=== PATIENT | male | born 1985 ===

== ENCOUNTER 2025-01-20 09:49 | Outpatient (AMB) | payer OTHER, SELFPAY ==
--- OUTSIDE RECORDS SUMMARY | 2025-01-20 10:35 | XMS_ITS | Patient Health Record ---
Author Organization [facility] Address [address] [place] [address] [phone] Support Name Relationship Address Phone Lino Page Guarantor Unknown [phone] Allergies No Known Allergies Reason For Referral No Information Social History Sex Assigned At : Social History Observation Description Sex Assigned At Male Plan Of Treatment No Information Insurance Providers Payer Name Payer Address Payer Phone Subscriber Number Group Number Insured Name Patient Relationship to Insured Coverage Start Date Coverage End Date [place] MEDICA[place] ATT CLAIMS [address] [place] [address] [id number] Lino Page Self - patient is the insured
[2025-01-20 10:40] VITALS: BMI 32.5
--- NOTE | 2025-01-20 10:40 | MHC.OFFVIS ---
Vital Signs 01/20/25 10:40 Height 6 ft Weight 240 lb BMI 32.5 Intake Visit Reasons: SEE WHEELER-right hand injury, DOI 09/22/24 Intake Note: right hand dominant male presnets today for his right hand injury DOI 09/22/24. States on this day while in [place], [place] , he slipped on oil, put his hand out to break his hand. States he was seen at urgent care where nothing was done. States when he woke up the next day, he went to [facility] where he was told he has a fracture. He was splinted and advised to keep splint on. Currently states he continues to have pain, he was not able to follow up due to insurance and being out of states. Pain is at base of thumb, MCP's and numbness that comes and goes. Xrays update din office. Allergies No Known Allergies Allergy (Verified 01/20/25 10:47) HPI HPI SEE WHEELER-right hand injury, DOI 09/22/24: Details: Lino is a 39 year old right hand dominant man who presents with complaints of right hand pain, S/P fall, DOI: 09/22/24. He complains of pain throughout his entire hand , worse at the base of his thumb & multiple MCP joints. He says he had swelling to his whole hand after his fall, and was seen at [facility] for this. He says he has weakness & difficulty with gripping & lifting activities He complains of numbness in all the fingers of his right hand. Symptoms intermittent, but daily, worse at night. He says this is primarily in his middle, ring, and small fingers, but occasionally in his thumb & index finger as well. He has a Hx of a 4th & 5th metacarpal ORIF, done in ~2009 in [place], after punching a wall. 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 Review of Systems Const All systems reviewed & are unremarkable except as noted in HPI and below Physical Exam Vital Signs: BMI result Body Mass Index 32.5 Const General: cooperative, healthy appearing and no acute distress Orientation/consciousness: patient oriented x3 HEENT Head: Yes normocephalic and Yes atraumatic Eyes EOM: EOMs intact bilaterally Resp Effort & Inspection: normal respiratory effort and able to speak in complete sentences Cardio Jugular venous distension: no JVD Skin General skin exam: turgor normal Rashes: no rashes Neuro General: patient oriented x3 Extrem Other: Evaluation of Right Upper Extremity: The patient is alert, oriented, and in no acute distress Neuro: Median, Ulnar, Radial nerves motor and sensory intact and sensation is normal to the tips of all digits today in clinic Vascular: Cap refill brisk ROM: He can make a closed fist with no overlap Small amount of ulnar deviation/pronation of the ring finger seen both with fingers extended and brought to a fist. No overlap with finger flexion or extension Skin: No lacerations or abrasions. General: No Ecchymosis. No Erythema or evidence of infection. He localizes his pain today to the radial aspect of his hand & wrist, as well as the 4th & 5th MCP joints Most tender over the basal joint Mildly Tender over the snuffbox No scaphoid tubercle tenderness No metacarpal tenderness Radiographs: 3 views of the right hand were taken and viewed by me today in clinic. They show healed 4th & 5th metacarpal fractures, S/P ORIF, with dorsally located plates & screws. Fractures well-healed with no loosening or breakage of implants. No evidence of a scaphoid fracture Psych Appearance: grossly normal Affect: normal affect Attitude: cooperative Assessment & Plan Assessment & Plan (1) Right hand pain: Code(s): M79.641 - Pain in right hand Category: Medical (2) Right hand weakness: Code(s): R29.898 - Other symptoms and signs involving the musculoskeletal system Category: Medical (3) Numbness and tingling in right hand: Code(s): R20.0 - Anesthesia of skin; R20.2 - Paresthesia of skin Category: Medical Plan Assessment & Plan: 1. Right hand pain, S/P fall DOI: 09/22/24 2. Right hand weakness, S/P fall DOI: 3/24/25 3. Right hand numbness, S/P fall DOI: 09/22/24 In all digits, primarily the middle, ring, and small fingers Symptoms intermittent, but daily, worse with activities 4. Patient status post ORIF of right 4th and 5th metacarpals with plates and screws Date of surgery of proximally 2009 in [place] These appear to have gone on to heal well, and I seen no loosening or breakage of implants I educated him about these conditions I discussed treatment options No operative intervention indicated at this time I discussed activity modifications, he will perform ROM exercises at home. he should avoid any heavy lifting or impact activities for the next few weeks I ordered a NCS to assess for peripheral nerve compression I ordered OT hand therapy to work on strengthening & normalizing function He will follow up in 6 weeks for a NCS review, when completed Orders: Orders XR hand RT min 3V Today M79.641 - Pain in right hand NE nerve conduction velocity Today R20.0 - Anesthesia of skin, R20.2 - Paresthesia of skin OT Evaluation and Treatment Today M79.641 - Pain in right hand, R20.0 - Anesthesia of skin, R20.2 - Paresthesia of skin, R29.898 - Other symptoms and signs involving the musculoskeletal system Scribe Plan - Not visible on output: Scribed for Paradise Handley MD by Saul Navarrete, medical technologist chemistry, on [ ] at [ ], EST. Coding Level of Care Code New Pt Level 4 (40804) Diagnoses Right hand pain M79.641 Right hand weakness R29.898 Numbness and tingling in right hand R20.0; R20.2
== END 2025-01-20 11:30 | disposition home or self-care (01) ==
LOC: HO.HOS 09:49
PROVIDERS: Visit Provider Orthopaedic Surgery
DX: M79.641 Pain in right hand (principal); R29.898 Other symptoms and signs involving the musculoskeletal system; R20.0 Anesthesia of skin; R20.2 Paresthesia of skin
CPT/HCPCS: 99204

== ENCOUNTER → 2025-01-20 09:51 | Outpatient (BNV) | payer OTHER, SELFPAY | PROVIDERS: Visit Provider Radiology Diagnostic Radiology | DX: M79.641 Pain in right hand (principal) | CPT/HCPCS: 73130 ==

== ENCOUNTER 2025-01-20 10:05 | Outpatient (REF) | payer OTHER, SELFPAY ==
--- NOTE | ~2025-01-20 | XR_ITS ---
EXAMINATION: XR HAND, RIGHT CLINICAL INFORMATION: M79.641 - Pain in right hand COMPARISON: None available. TECHNIQUE: PA, lateral, and oblique views of the right hand. FINDINGS: There are intact metallic plates in the fourth and fifth metacarpals. No acute cortical disruption or malalignment. No gross loosening. No subcutaneous emphysema. No lytic or blastic lesions. XR/XR hand RT min 3V IMPRESSION: Status post open reduction internal fixation the fourth and fifth metacarpals. Electronically signed by: Darío Nunez MD 01/20/2025 10:11 AM EDT
--- OUTSIDE RECORDS SUMMARY | 2025-01-21 10:56 | XMS_ITS | Patient Health Record ---
Author Organization [facility] Address [address] [place] [address] [phone] Support Name Relationship Address Phone Lino Page Guarantor Unknown [phone] Allergies No Known Allergies Reason For Referral No Information Social History Sex Assigned At : Social History Observation Description Sex Assigned At Male Plan Of Treatment No Information Insurance Providers Payer Name Payer Address Payer Phone Subscriber Number Group Number Insured Name Patient Relationship to Insured Coverage Start Date Coverage End Date [place] ATT CLAIMS [address] [place] [address] [id number] Lino Page Self - patient is the insured
== END 2025-01-20 10:06 | disposition home or self-care (01) ==
LOC: HO.HOSX 10:05
PROVIDERS: Visit Provider Orthopaedic Surgery
DX: M79.641 Pain in right hand (principal); R20.0 Anesthesia of skin; R20.2 Paresthesia of skin; R29.898 Other symptoms and signs involving the musculoskeletal system; Z96.698 Presence of other orthopedic joint implants
CPT/HCPCS: 73130; 99202

== ENCOUNTER 2025-03-10 08:51 | Outpatient (REF) | payer OTHER, SELFPAY ==
--- NOTE | ~2025-03-10 | XR_ITS ---
EXAMINATION: XR HAND 3 OR MORE VIEWS RIGHT HISTORY: M79.641 - Pain in right hand COMPARISON: Comparison is made with the prior examination dated 01/18/2025. FINDINGS: Three views of the right hand are submitted. Osseous mineralization is normal. The patient is again noted to be status post internal fixation of the 4th and 5th metacarpals with sideplates and multiple orthopedic screws. No fracture line is seen. No acute fracture is identified. There is no dislocation. The joint spaces are preserved. The soft tissues are unremarkable. XR/XR hand RT min 3V IMPRESSION: No acute abnormality is identified. Electronically signed by: Sam Bullock MD 03/10/2025 12:19 PM EDT
== END 2025-03-10 08:52 | disposition home or self-care (01) ==
LOC: HO.HOSX 08:51
PROVIDERS: Visit Provider Orthopaedic Surgery
DX: M79.641 Pain in right hand (principal); R29.898 Other symptoms and signs involving the musculoskeletal system; R20.0 Anesthesia of skin; R20.2 Paresthesia of skin
CPT/HCPCS: 73130; 99212

== ENCOUNTER 2025-03-10 11:32 | Outpatient (AMB) | payer OTHER, SELFPAY ==
[2025-03-10 11:41] VITALS: BMI 32.5
--- NOTE | 2025-03-10 11:41 | MHC.OFFVIS ---
Vital Signs 03/10/25 11:41 Height 6 ft Weight 240 lb BMI 32.5 Intake Visit Reasons: OV-right hand injury, DOI 09/22/24 Intake Note: Lino 39 yr old right hand dominant male presents today for his follow right hand pain, S/P fall DOI: 09/22/24. At his last visit he was advise to have a EMG study done and start to work with O.T hand therapy to work on strengthening & normalizing function. Currently states he has his EMG appt scheduled in April but wanted to be seen today for his ROM check. States he has been working with O.T and feel he has improved a little. States he was also advise from his P.T to have his EMG done. 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 Allergies No Known Allergies Allergy (Verified 03/10/25 11:42) HPI HPI OV-right hand injury, DOI 09/22/24: Details: Lino is a 39 year old right hand dominant man who presents with complaints of right hand pain, S/P fall, DOI: 09/22/24. No known fractures at the time, he is here for a ROM check The patient still has episodes of pain that seemed to migrate about different parts of the right hand, worse at the base of his thumb & multiple MCP joints. He says he has days that are tolerable, and other days where the pain is more severe. He has been working with OT hand therapy but says he is not satisfied with his current hand function & ROM. He says he does perform his exercises throughout the day. He says he has weakness & difficulty with gripping & lifting activities. He complains of numbness in all the fingers of his right handand generalized symptoms are worse at night. He has a NCS scheduled for 04/15/25. He has a Hx of a 4th & 5th metacarpal ORIF, done in ~2009 in [place], after punching a wall. These went on to heal well. 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 No overlap with finger flexion or extension. He localizes his pain today to multiple locations, including the dorsal ulnar & radial aspects of his hand & wrist, as well as the basal joint No snuffbox or scaphoid tubercle tenderness No metacarpal tenderness Radiographs: 3 views of the right hand were taken and viewed by me today in clinic. They show healed 4th & 5th metacarpal fractures, S/P ORIF, with dorsally located plates & screws. Fractures well-healed with no loosening or breakage of implants. No evidence of a scaphoid fracture Assessment & Plan Assessment & Plan (1) Right hand pain: Code(s): M79.641 - Pain in right hand Category: Medical (2) Right hand weakness: Code(s): R29.898 - Other symptoms and signs involving the musculoskeletal system Category: Medical (3) Numbness and tingling in right hand: Code(s): R20.0 - Anesthesia of skin; R20.2 - Paresthesia of skin Category: Medical Plan Assessment & Plan: 1. Right hand pain, S/P fall DOI: 09/22/24 Worse at night, associated with numbness 2. Right hand weakness, S/P fall DOI: 09/22/24 3. Right hand numbness, S/P fall DOI: 09/22/24 In all digits, Decreased subjective sensation to all digits except the thumb today in clinic Symptoms intermittent, but daily, worse at night. 4. Patient S/P ORIF of right 4th and 5th metacarpals with plates and screws DOS: ~2009 in [place] These appear to have gone on to heal well, and I seen no loosening or breakage of implants. Mild malrotation of the ring finger. I educated him about these conditions I discussed treatment options No operative intervention indicated at this time I discussed activity modifications, he will perform ROM exercises at home. he should avoid any heavy lifting or impact activities for the next few weeks I believe some of his symptoms are likely related to carpal and possible cubital tunnel syndrome. NCS scheduled for 04/15/25. He should continue to wear his wrist splint at night He will continue to attend OT hand therapy to work on stretching, strengthening, & normalizing function He should continue to work on ROM exercises 20X daily He will follow up when his NCS is completed, sometime late April. Scribed for Paradise Handley MD by Saul Navarrete, senior medical billing specialist, on 03/10/25 at 11:45 AM, EST. Orders: Orders XR hand RT min 3V Today M79.641 - Pain in right hand Coding Level of Care Code Est Pt Level 4 (50752) Diagnoses Right hand pain M79.641 Right hand weakness R29.898 Numbness and tingling in right hand R20.0; R20.2
--- OUTSIDE RECORDS SUMMARY | 2025-03-10 14:06 | XMS_ITS | Patient Health Record ---
Author Organization [facility] Address [address] [place] [address] [phone] Support Name Relationship Address Phone Lino Page Guarantor Unknown [phone] Allergies No Known Allergies Reason For Referral No Information Social History Sex Assigned At : Social History Observation Description Sex Assigned At Male Social History HIV Risk Assessment Social Info Question Answer Notes Additional Questions Is an HIV Risk Assessment being c onducted? Yes Have you been tested for HIV before? Yes If yes, when and where? last yr Did you have a blood transfusion prior to 1985? No Do you have an unlicensed body piercing or tattoo? Yes Reproductive Life Plan: Social Info Question Answer Notes Reproductive Life Plan: Do you want to h ave children? Not sure Human Trafficking: Social Info Question Answer Notes Human Trafficking Experienced: No Sexual History: Social Info Question Answer Notes Sexual History: Sexual History Reviewed: Partner s, Practices, Protection/Past STIs, Prevention of Currently sexually active? Yes Sexually active with: Women Number of female partners 1 Your sexual activities include: oral intercourse, vaginal intercourse Have you had vaginal intercourse with an IDU in the last 12 months? No Have you had vaginal intercourse with a person who is HIV + in the last 12 months? No Have you had vaginal intercourse with a person of unknown HIV status in the last 12 months? No Have you had vaginal intercourse with an MSM in the last 12 months? (FEMALES ONLY) No Reviewed types of EC? No Do you use condoms? No Number of partners in past 3 months: 1 Number of partners in past year: 2 Counseling Provided: Social Info Question Answer Notes Counseling Provided Please indicate the length of time, in minutes, that counseling was provided. 6 Counseling Was Provided By: aiden Drugs/Alcohol: Social Info Question Answer Notes Drug/Alcohol Use Do you or have you used drugs? No Do you or have you used alcohol? Yes, currently occasionally Food Access: Social Info Question Answer Notes Food Access The Client's current access to food is Secure Food Access Relationships: Social Info Question Answer Notes Relationships Has the client exper ienced any of the following: Client has never experienced harmful relationships Housing Social Info Question Answer Notes Housing The client's current living situation is: stable housing Tobacco Use: Social Info Question Answer Notes Tobacco Use: Do you/have you used tobacco? Yes, janine miguel How long have you been smoking (years)? 10 How many cigarettes do you smoke per day? socially Plan Of Treatment No Information Insurance Providers Payer Name Payer Address Payer Phone Subscriber Number Group Number Insured Name Patient Relationship to Insured Coverage Start Date Coverage End Date [place] MEDICAID ATT CLAIMS [address] [place] [id number] [phone] [id number] Lino Page Self - patient is the insured
== END 2025-03-10 12:10 | disposition home or self-care (01) ==
LOC: HO.HOS 11:33
PROVIDERS: Visit Provider Orthopaedic Surgery
DX: M79.641 Pain in right hand (principal); R29.898 Other symptoms and signs involving the musculoskeletal system; R20.0 Anesthesia of skin; R20.2 Paresthesia of skin
CPT/HCPCS: 99214

== ENCOUNTER → 2025-03-10 11:34 | Outpatient (BNV) | payer OTHER, SELFPAY | PROVIDERS: Visit Provider Radiology Diagnostic Radiology | DX: M79.641 Pain in right hand (principal) | CPT/HCPCS: 73130 ==

== ENCOUNTER 2025-03-17 11:00 | Outpatient (RCR) | payer OTHER, SELFPAY ==
--- NOTE | 2025-02-10 13:41 | MHC.OT.EP ---
[facility] Office [address] [facility] [phone] F: [phone] F: [phone] Occupational Therapy Plan of Care Patient Name: Lino Page Date of Evaluation: 02/10/25 Diagnosis: R hand weakness/ pain Pain Location: Pain Score: 6 Pain Scale Used: Numeric (0 - 10) Aggravating Factors: Alleviating Factors: Assessment: Pt is a 39 yr old R hand dominant male who reports a FOOSH incident in August of this year while in [facility]. He went to urgent care and was diagnosed w/ a scaphoid fracture and given a prefabricated splint which he reports wearing. He also has a pmhx of ORIF for his SF/RF (phalanx) from [place]ber[place] he was in his 20's and punched a wall. He reports weakness in his hand as well as numbness/ tingling in his palm and D's 1- 4. He also reports the inability to open jars and hold onto items using his R hand. He presents today w/ good ROM, but decreased strength, and functional use of his (R) dominant hand. Pt also has a (+) Phalen's and Tinels (at CT). 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 Thank you once again for your referral.
== END 2025-05-19 09:01 | disposition home or self-care (01) ==
LOC: HO.OT 11:00
PROVIDERS: Visit Provider Orthopaedic Surgery
DX: R29.898 Other symptoms and signs involving the musculoskeletal system (principal); M79.641 Pain in right hand; R20.0 Anesthesia of skin
CPT/HCPCS: 97110; 97140; 97165

== ENCOUNTER 2025-04-15 10:52 | Outpatient (REF) | payer OTHER, SELFPAY ==
--- NOTE | 2025-04-15 10:55 | EMG_ITS ---
Chief complaint: Right hand pain and numbness after a fall. History of ORIF right 4th and 5th digits 2010. Reason for referral: Evaluate for Carpal Tunnel Syndrome Referred by: Cristhian MOYER Procedure done: Right upper extremity NCS/EMG Precautions and/or limitations: None The limb temperature was monitored continuously and remained between 32-36 degrees C during the performance of the NCS. Nerve Conduction Studies Anti Sensory Summary Table ?Stim Site NR Onset (ms) Norm Onset (ms) Peak (ms) Norm Peak (ms) O-P Amp (?V) Norm O-P Amp Site1 Site2 Delta-0 (ms) Dist (cm) Kostas (m/s) Norm Kostas (m/s) Right Median Anti Sensory (2nd Digit) Wrist ? 2.3 3.1 <3.6 45.7 >10 Wrist 2nd Digit 2.3 14.0 61 Right Ulnar Anti Sensory (5th Digit) Wrist ? 2.6 3.3 <3.7 26.7 >15.0 Wrist 5th Digit 2.6 14.0 54 Motor Summary Table ?Stim Site NR Onset (ms) Norm Onset (ms) O-P Amp (mV) Norm O-P Amp iAmp (mV) Amp (1st) (%) Site1 Site2 Delta-0 (ms) Dist (cm) Kostas (m/s) Norm Kostas (m/s) Right Median Motor (Abd Poll Brev) Wrist ? 3.4 <3.9 8.3 >4.5 9.9 100.0 Elbow Wrist 4.3 24.0 56 >45 Elbow ? 7.7 8.0 9.9 96.4 Right Ulnar Motor (Abd Dig Minimi) Wrist ? 2.8 <3.0 8.4 >5 11.6 100.0 B Elbow Wrist 3.8 21.5 57 >45 B Elbow ? 6.6 8.2 11.6 97.6 A Elbow B Elbow 1.2 10.0 83 >45 A Elbow ? 7.8 7.9 11.3 94.0 Comparison Summary Table ?Stim Site NR Peak (ms) Norm Peak (ms) P-T Amp (?V) Site1 Site2 Delta-P (ms) Norm Delta (ms) Right Median/Radial Dig I Comparison (Digit 1 - 10cm) Median ? 2.5 <2.9 84.9 Median Radial 0.2 Radial ? 2.7 <2.8 15.0 EMG ?Side Muscle Nerve Root Ins Act Fibs Psw Amp Dur Poly Recrt Int Pat Comment Right 1stDorInt Ulnar C8-T1 Nml Nml Nml Nml Nml 0 Nml Complete Right FlexCarRad Median C6-7 Nml Nml Nml Nml Nml 0 Nml Complete Right Biceps Musculocut C5-6 Nml Nml Nml Nml Nml 0 Nml Complete Right Triceps Radial C6-7-8 Nml Nml Nml Nml Nml 0 Nml Complete Right Deltoid Axillary C5-6 Nml Nml Nml Nml Nml 0 Nml Complete FINDINGS: All motor and sensory nerves tested showed normal latencies, amplitudes and conduction velocities. Concentric needle EMG was performed in selected muscles of the right upper extremity. Study did not reveal signs of electric abnormalities as shown in the table above. IMPRESSION: 1. This is a normal study. 2. There is no electrodiagnostic evidence for median neuropathy, ulnar neuropathy, brachial plexopathy, or cervical radiculopathy. Thank you for your kind referral. Joanne Em MD, URSULA Board Certified, [place] Board [employer] and Rehabilitation (ABPMR) Board Certified, [place] Board of Electrodiagnostic Medicine (ABEM) CODIN 12599 MTDD
--- OUTSIDE RECORDS SUMMARY | 2025-04-15 13:15 | XMS_ITS | Patient Health Record ---
Author Organization [facility] Address [address] [place] [address] [phone] Support Name Relationship Address Phone Lino Page Guarantor Unknown [phone] Allergies No Known Allergies Reason For Referral [...] Insured Coverage Start Date Coverage End Date [place] MED[place] ATT CLAIMS [address] [place] [address] [phone] [id number] Lino Page Self - patient is the insured
== END 2025-04-15 10:53 | disposition home or self-care (01) ==
LOC: HO.NEURO 10:52
PROVIDERS: Visit Provider Orthopaedic Surgery
DX: R20.0 Anesthesia of skin (principal); R20.2 Paresthesia of skin
CPT/HCPCS: 95886; 95909

== ENCOUNTER → 2025-04-15 10:55 | Outpatient (BNV) | payer OTHER, SELFPAY | PROVIDERS: Visit Provider Physical Medicine & Rehabilitation | DX: R20.0 Anesthesia of skin (principal); M79.641 Pain in right hand | CPT/HCPCS: 95886; 95909 ==

== ENCOUNTER 2025-04-28 09:12 | Outpatient (REF) | payer OTHER, SELFPAY ==
--- OUTSIDE RECORDS SUMMARY | 2025-04-29 10:28 | XMS_ITS | Patient Health Record ---
Author Organization [facility] Address [address] [place] [address] Support Name Relationship Address Phone Lino Page Guarantor Unknown [phone] Allergies No Known Allergies Reason For Referral [...] Life Plan: Do you want to h karrie children? Not sure Human Trafficking: Social Info [...] Insured Coverage Start Date Coverage End Date [place] ATT CLAIMS [address] [place] [address] [phone] [id number] Lino Page Self - patient is the insured
== END 2025-04-28 09:13 | disposition home or self-care (01) ==
LOC: HO.HOSX 09:12
PROVIDERS: Visit Provider Orthopaedic Surgery
DX: Z13.89 Encounter for screening for other disorder (principal)